=== PATIENT | female | born 1985 | race Caucasian/White ===

== ENCOUNTER 2018-09-08 12:14 | Emergency (ER) | payer OTHER ==
[~2018-09-08] VITALS: Ht 152.4 cm; Wt 72.6 kg
[2018-09-08 12:40] VITALS: BP 123/75
--- NOTE | 2018-09-08 13:15 | RAD ---
EXAM: PA, oblique and lateral views of the right wrist DATE: 09/08/2018 12:57 PM INDICATION: PT FELL ON FRIDAY. PAIN TO RT WRIST COMPARISON: No Prior FINDINGS: No evidence of acute fracture or dislocation. Joint spaces are preserved without significant degenerative/proliferative change. No significant soft tissue swelling. IMPRESSION: No evidence of acute fracture or dislocation. Electronically signed by: Chandrakant Butcher MD (09/08/2018 1:12 PM) [facility]
--- NOTE | 2018-09-08 13:44 | PHYS DOC ---
Past Medical History Past Medical History: No Pertinent History Past Surgical History: Tubal ligation Alcohol Use: Occasionally Drug Use: None Adult General Chief Complaint Chief Complaint: WRIST PAIN HPI HPI Patient is a 33 year old female who presents with right wrist pain. The patient was carrying in plastic sacks when she tripped over a [place] ornament injuring her wrist three days ago. She states that the pain has continued and she is now worried that she might possibly have broken the extremity. She denies any other injury. She is able to move the extremity. She has taken [id number] pain medication with moderate relief. Review of Systems Review of Systems Constitutional: Denies fever or chills [] Respiratory: Denies cough or shortness of breath [] Cardiovascular: No additional information not addressed in HPI [] GI: Denies abdominal pain, nausea, vomiting, bloody stools or diarrhea [] : Denies dysuria or hematuria [] Musculoskeletal: See history of present illness Integument: Denies rash or skin lesions [] Neurologic: Denies headache, focal weakness or sensory changes [] Endocrine: Denies polyuria or polydipsia [] All other systems were reviewed and found to be within normal limits, except as documented in this note. Allergies Allergies Allergies Coded Allergies Type Severity Reaction Last Updated Verified No Known Drug Allergies 09/08/18 No Physical Exam Physical Exam Constitutional: Well developed, well nourished, no acute distress, non-toxic appearance. [] HENT: Normocephalic, atraumatic, bilateral external ears normal, oropharynx moist, no oral exudates, nose normal. [] Eyes: PERRLA, EOMI, conjunctiva normal, no discharge. [] Neck: Normal range of motion, no tenderness, supple, no stridor. [] Cardiovascular:Heart rate regular rhythm, no murmur [] Lungs & Thorax: Bilateral breath sounds clear to auscultation [] Abdomen: Bowel sounds normal, soft, no tenderness, no masses, no pulsatile masses. [] Skin: Warm, dry, no erythema, no rash. [] Back: No tenderness, no CVA tenderness. [] Extremities: tenderness to right wrist with palpation, no evidence of tendon injury, mild edema with no ecchymosis noted, no cyanosis, no clubbing, ROM intact, pulses and sensation are intact distal to injury Neurologic: Alert and oriented X 3, normal motor function, normal sensory function, no focal deficits noted. [] Psychologic: Affect normal, judgement normal, mood normal. [] Current Patient Data Vital Signs Vital Signs Date Time Temp Pulse Resp B/P (MAP) Pulse Ox O2 Delivery O2 Flow Rate FiO2 09/08/18 12:40 98.2 67 16 123/75 (91) 99 Room Air 98.2 EKG EKG [] Radiology/Procedures Radiology/Procedures [] Course & Med Decision Making Course & Med Decision Making Pertinent Labs and Imaging studies reviewed. (See chart for details) []The patient was placed in a Velcro wrist splint for comfort. Dragon Disclaimer Dragon Disclaimer This electronic medical record was generated, in whole or in part, using a voice recognition dictation system. Departure Departure Impression: Primary Impression: Wrist pain Disposition: 01 HOME, SELF-CARE Condition: STABLE Referrals: NO PCP (PCP) Patient Instructions: RICE - Routine Care for Injuries, Wrist Pain Additional Instructions: Use the Velcro splint for comfort. RICE the extremity. Follow-up with your primary care provider for possible or the referral if not improving in one week. FREDO SARAVIA [employer] Sep 08, 2018 13:44
== END 2018-09-08 13:49 | disposition home or self-care (01) ==
LOC: ER 12:14
DX: M25.531 Pain in right wrist (principal); G89.11 Acute pain due to trauma; W01.0XXA Fall on same level from slipping, tripping and stumbling without subsequent striking against object, initial encounter; Y93.89 Activity, other specified; Y92.89 Other specified places as the place of occurrence of the external cause; Y99.8 Other external cause status
CPT/HCPCS: 29125; 73110; 99283